=== PATIENT | female | born 1950 | race Caucasian/White ===

== ENCOUNTER 2021-10-18 00:47 | Day surgery (SDC) | payer MEDICARE, OTHER, SELFPAY ==
[2021-10-13 12:49] VITALS: BMI 31.4
[2021-10-18 11:25] VITALS: BP 177/91; PULSE 65; RESP 18; TEMP 36.4; O2SAT 98; BMI 32.0
[2021-10-18] MEDS: LACTATED RINGERS 1,000 ML 150 ML IV CONT (11:34)
--- NOTE | 2021-10-18 11:47 | WPDHPUPDATE1 ---
History and Physical Update Update Date/Time: 10/18/21 11:47 History and Physical has been reviewed, including an updated exam of the patient. There are NO changes in the patient's condition. Risks, benefits, and alternatives have been discussed and questions answered. Patient agrees to proceed with procedure.
--- NOTE | 2021-10-18 11:57 | WPDANESEPP ---
Anes - Eval Pre Procedure Procedure: Operation Date: 10/18/21 12:30 Proposed Procedures p Esophagogastroduodenoscopy - Alex Rios MD Date/Time: 10/18/21 11:57 Pre Op Diagnosis: GERD Patient Data Age: 71 Gender: F Height: 1.57 m Weight: 79.4 kg Last Vital Signs Temp 97.5 F L 10/18/21 11:25 Pulse 65 10/18/21 11:25 Resp 18 10/18/21 11:25 BP 177/91 H 10/18/21 11:25 Pulse Ox 98 10/18/21 11:25 Allergies Allergy/AdvReac Type Severity Reaction Status Date / Time No Known Allergies Allergy Verified 10/18/21 11:24 Home Medications Medication Instructions Recorded Confirmed Type Saccharomyces boulardii 250 mg 250 mg PO BID 10/11/21 10/18/21 History capsule alprazolam 0.25 mg tablet 0.25 mg PO BID PRN 10/11/21 10/18/21 History anastrozole 1 mg tablet 1 mg PO DAILY 10/11/21 10/18/21 History aspirin 81 mg tablet,delayed 81 mg PO DAILY 10/11/21 10/18/21 History release atorvastatin 20 mg tablet 20 mg PO DAILY 10/11/21 10/18/21 History calcium carbonate 600 mg-vitamin 1 cap PO BID 10/11/21 10/18/21 History D3 12.5 mcg (500 unit) capsule cholecalciferol (vitamin D3) 125 125 mcg PO BID 10/11/21 10/18/21 History mcg (5,000 unit) capsule cinnamon bark 500 mg capsule 1,000 mg PO DAILY cap 10/11/21 10/18/21 History citalopram 40 mg tablet 20 mg PO DAILY 10/11/21 10/18/21 History coenzyme Q10 200 mg/gram oral 200 mg PO DAILY 10/11/21 10/18/21 History powder cyanocobalamin (vitamin B-12) 1,000 mcg PO DAILY 10/11/21 10/18/21 History 1,000 mcg capsule green tea 315 mg-hoodia gordonii 1 cap PO BID 10/11/21 10/18/21 History 12.5 mg capsule levothyroxine 50 mcg capsule 50 mcg PO DAILY 10/11/21 10/18/21 History losartan 100 1 tablet PO DAILY 10/11/21 10/18/21 History mg-hydrochlorothiazide 25 mg tablet magnesium oxide 500 mg capsule 500 mg PO DAILY 10/11/21 10/18/21 History niacin 500 mg tablet 500 mg PO DAILY 10/11/21 10/18/21 History omega-3 fatty acids 1,000 mg 1,000 mg PO DAILY 10/11/21 10/18/21 History capsule omeprazole 20 mg capsule,delayed 20 mg PO DAILY 10/11/21 10/18/21 History release potassium gluconate 595 mg (99 mg) 595 mg PO BID 10/11/21 10/18/21 History tablet turmeric root extract 500 mg 500 mg PO DAILY 10/11/21 10/18/21 History capsule verapamil 120 mg tablet 120 mg PO Q12H 10/11/21 10/18/21 History vitamin B complex 1 tablet PO DAILY 10/11/21 10/18/21 History vitamin E (dl, acetate) 450 mg 450 mg PO BID 10/11/21 10/18/21 History (1,000 unit) capsule zinc sulfate 50 mg zinc (220 mg) 50 mg PO BID 10/11/21 10/18/21 History tablet Patient hx anesthesia problems: none Family hx anesthesia problems: none Results Review: All pre-operative results and documents have been reviewed as part of the pre-operative evaluation. [facility] Past Medical History Medical History (Updated 10/11/21 @ 16:09 by CORTNEY Abbott) Breast cancer left GERD (gastroesophageal reflux disease) HLD (hyperlipidemia) HTN (hypertension) Hypothyroidism Surgical History Surgical History (Updated 10/11/21 @ 13:22 by Jelena Duron MA) Hx of tonsillectomy Family History Family History (Updated 10/11/21 @ 13:13 by Elissa Weir CMA) Mother Diabetes mellitus Father Cerebrovascular accident Social History Social History (Updated 10/11/21 @ 13:13 by Elissa Weir CMA) Smoking status: Never smoker Alcohol intake: never Alcohol use details: social Substance use: never Substance use type: does not use Living arrangements: with family Spiritual care concerns: No Exam Day of Procedure 10/18/21 11:57 Patient weight: overweight Heart: regular rate and rhythm Lungs: clear to auscultation Airway: Mallampati scale class II Neurological: alert and oriented
[2021-10-18 12:17] VITALS: BP 88/41; PULSE 58; RESP 15; O2SAT 96
[2021-10-18 12:27] VITALS: BP 107/67; PULSE 61; RESP 21; O2SAT 95
[2021-10-18 12:37] VITALS: BP 121/97; PULSE 55; RESP 16; O2SAT 97
== END 2021-10-18 12:49 | disposition home or self-care (01) ==
PROVIDERS: PCP Internal Medicine; Visit Provider Internal Medicine Gastroenterology
PROC: 0DJ08ZZ Inspection of Upper Intestinal Tract, Via Natural or Artificial Opening Endoscopic (ICD-10-PCS; CPT 43235; principal; 2021-10-18 12:30)
DX: K21.9 Gastro-esophageal reflux disease without esophagitis (principal); K29.50 Unspecified chronic gastritis without bleeding; K44.9 Diaphragmatic hernia without obstruction or gangrene; I10 Essential (primary) hypertension; E78.5 Hyperlipidemia, unspecified; E03.9 Hypothyroidism, unspecified; Z85.3 Personal history of malignant neoplasm of breast
CPT/HCPCS: 43239; 87081; 88305; J2704; J7120